=== PATIENT | female | born 1985 | race African-American/Black ===

== ENCOUNTER 2016-12-14 08:57 | Emergency (ER) | payer MEDICAID, OTHER ==
[~2016-12-14] VITALS: Ht 172.7 cm; Wt 86.0 kg
[2016-12-14] MEDS ORDERED: SODIUM CHLORIDE 0.9% 1,000 ML IV ONE (14:18)
[2016-12-14] MEDS ORDERED: KETOROLAC 30MG/ML VIAL IV STA (14:18)
[2016-12-14] MEDS ORDERED: ONDANSETRON HCL 4MG/2ML VIAL IV STA (14:18)
[2016-12-14] MEDS ORDERED: METOCLOPRAMIDE HCL 10MG/2ML VIAL IV ONE (14:30)
[2016-12-14 15:39] LABS: HCG SCREEN NEGATIVE
[2016-12-14 16:00] VITALS: BP 114/63
== END 2016-12-14 17:50 | disposition home or self-care (01) ==
LOC: ER 13:58
DX: B97.4 Respiratory syncytial virus as the cause of diseases classified elsewhere (principal); J98.8 Other specified respiratory disorders
CPT/HCPCS: 71010; 84703; 96361; 96374; 96375; 99285; J1885; J2405; J2765; J7030; Z7610

== ENCOUNTER 2017-01-16 08:33 | Emergency (ER) | payer MEDICAID ==
[~2017-01-16] VITALS: Ht 172.7 cm; Wt 82.0 kg
[2017-01-16] MEDS ORDERED: KETOROLAC 60MG/2ML VIAL IM ONE (09:30)
[2017-01-16 10:10] VITALS: BP 120/75
== END 2017-01-16 10:19 | disposition home or self-care (01) ==
LOC: ER 08:45
DX: M25.561 Pain in right knee (principal)
CPT/HCPCS: 73562; 81025; 96372; 99284; J1885; Z7610

== ENCOUNTER 2017-04-20 07:17 | Emergency (ER) | payer MEDICAID ==
[~2017-04-20] VITALS: Ht 175.3 cm; Wt 81.0 kg
[2017-04-20] MEDS ORDERED: SODIUM CHLORIDE 0.9% 1,000 ML IV ONE (09:43)
[2017-04-20 10:07] LABS: CLARITY URINE CLEAR (CLEAR); COLOR URINE YELLOW (YELLOW); KETONES URINE NEGATIVE (NEGATIVE); LEUKOCYTE ESTERASE URINE NEGATIVE (NEGATIVE); NITRITE URINE NEGATIVE (NEGATIVE); OCCULT BLOOD URINE NEGATIVE (NEGATIVE); PROTEIN URINE NEGATIVE (NEGATIVE); SPECIFIC GRAVITY URINE 1.009 (1.005-1.030); UROBILINOGEN URINE 0.2 E.U./dL (0.2-1.0)
[2017-04-20 10:11] LABS: BASOPHILS % 1.1 % (0.0-2.0); EOSINOPHILS % 2.7 % (0.0-5.0); HEMATOCRIT. 40.6 % (36.0-48.0); HEMOGLOBIN. 13.3 g/dL (12.0-16.0); LYMPHOCYTES % 26.7 % (20.0-50.0); MEAN CORPUSCULAR HEMOGLOBIN 24.7 pg (28.0-32.0); MEAN CORPUSCULAR VOLUME 75.3 fL (81.0-99.0); MEAN PLATELET VOLUME 9.8 fl (7.4-10.4); MONOCYTES % 7.8 % (2.0-8.0); NEUTROPHILS % 61.7 % (40.0-76.0); PLATELET 375 x1000/uL (130-400); RED BLOOD CELL COUNT 5.39 mill/uL (4.2-5.4); RED CELL DISTRIBUTION WIDTH 14.4 % (11.6-14.6)
[2017-04-20 10:24] LABS: PROTHROMBIN TIME 10.4 sec (9.4-11.6)
[2017-04-20 10:35] LABS: CARBON DIOXIDE 29 mEq/L (21-32)
[2017-04-20 11:01] LABS: HCG SCREEN NEGATIVE
[2017-04-20 11:28] LABS: CHLORIDE 104 mEq/L (98-107)
[2017-04-20 14:19] VITALS: BP 115/68
== END 2017-04-20 15:42 | disposition home or self-care (01) ==
LOC: ER 07:57
DX: M25.512 Pain in left shoulder (principal); R07.9 Chest pain, unspecified; M79.622 Pain in left upper arm; R42 Dizziness and giddiness
CPT/HCPCS: 36415; 71045; 73030; 80053; 81003; 81025; 84443; 84484; 84703; 85025; 85610; 93005; 93971; 96360; 96361; 99285; J7030; Z7610